=== PATIENT | male | born 2000 | race Caucasian/White ===

== ENCOUNTER 2018-09-11 15:43 | Emergency (ER) | payer OTHER ==
[2018-09-11] MEDS ORDERED: Lidocaine 1% 20 ML MDV ONE (15:47)
--- NOTE | 2018-09-11 16:35 | RAD ---
LEFT HAND THREE VIEW 09/11/18 HISTORY: Cut fourth and fifth fingers in a car window. COMPARISON: None. FINDINGS: There is soft tissue laceration along the radial aspect of the fourth finger at the level of the midd le phalanx. There is also soft tissue laceration along the ulnar aspect of the distal interphalangeal joint of the small finger. No radiopaque foreign objects is appreciated. No acute fracture. IMPRESSION: Soft tissue injury as described. No fracture or malalignment. POS: [facility]
[2018-09-11] MEDS ORDERED: Bacitracin Zinc 1 Packet ONE (17:10)
[2018-09-11] MEDS ORDERED: Acetaminophen 500 MG TAB ONE (17:21)
== END 2018-09-11 17:25 | disposition home or self-care (01) ==
LOC: SCSER 15:43
DX: S61.215A Laceration without foreign body of left ring finger without damage to nail, initial encounter (principal); S61.217A Laceration without foreign body of left little finger without damage to nail, initial encounter; W26.9XXA Contact with unspecified sharp object(s), initial encounter
CPT/HCPCS: 12002; J2001